=== PATIENT | female | born 1995 | race Caucasian/White ===

== ENCOUNTER 2019-12-04 10:16 | Outpatient (CLI) | payer OTHER ==
--- NOTE | 2019-12-04 14:22 | RAD ---
CHEST 2 VIEWS: HISTORY: Fever, negative fluid and COVID tests. FINDINGS: Heart size is within normal limits. The lungs are clear. No confluent pneumonia, overt edema, or pl eural effusions. IMPRESSION: No significant acute intrathoracic disease. POS: [facility]
== END 2019-12-04 10:17 | disposition home or self-care (01) ==
LOC: BICRAD 10:16
PROVIDERS: ATTEND Family Medicine
DX: R50.9 Fever, unspecified (principal); Z20.828 Contact with and (suspected) exposure to other viral communicable diseases; N76.0 Acute vaginitis
CPT/HCPCS: 36415; 71046; 85025; 86140; 86694; 86695; 86696; 86769; 86780; 86803; 87389; 87480; 87491; 87510; 87591; 87660